=== PATIENT | male | born 1980 | race Caucasian/White ===

== ENCOUNTER 2019-12-26 12:56 | Emergency (ER) | payer SELFPAY ==
--- NOTE | ~2019-12-26 | XR_ITS ---
XR ankle LT min 3V DATE: 12/26/2019 14:22 INDICATION: Injury. Swelling. TECHNIQUE: 4 views COMPARISON: None FINDINGS: There is mild medial soft tissue swelling. No fracture or dislocation of the ankle or disru ption of the ankle mortise. No periosteal reaction or bone destruction. IMPRESSION: Mild medial soft tissue swelling Reviewed, dictated and finalized at location A.
[2019-12-26 13:33] VITALS: BP 154/98; PULSE 83; RESP 18; TEMP 36.8; O2SAT 100
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
--- NOTE | 2019-12-26 14:38 | PC.NURSE ---
Pt states he had TDAP 3 years ago/
[2019-12-26 14:47] LABS: Basophils Absolute Auto 0.1 K/mm3 (0.0-0.1); Basophils Percent Auto 1.5 % (0.2-1.2); Eosinophils Absolute Auto 0.2 K/mm3 (0-0.3); Eosinophils Percent Auto 1.8 % (0-4.4); Hematocrit 47.7 % (42.0-52.0); Hemoglobin 17.1 g/dL (14.0-18.0); Immature Granulocyte Absolute 0.07 K/mm3 (0.00-0.031); Immature Granulocyte Percent A 0.9 % (0-0.5); Lymphocytes Percent Auto 22.2 % (18.3-44.2); Mean Corpuscular HGB Conc 35.8 g/dl (32-36); Mean Corpuscular Hemoglobin 36.4 pg (26-34); Mean Corpuscular Volume 101.5 fl (80-100); Mean Platelet Volume 8.4 fl (7.4-10.4); Monocytes Absolute Auto 0.7 K/mm3 (0.1-0.6); Monocytes Percent Auto 8.4 % (2.6-8.5); Neutrophils Absolute Auto 5.3 K/mm3 (1.3-6.7); Neutrophils Percent Auto 65.2 % (45.5-73.1); Platelet Count Result 262 k/mm3 (150-375); Red Cell Distribution Width 12.5 % (11.5-14.5); White Blood Count 8.1 K/mm3 (4.5-10.0)
[2019-12-26 15:01] LABS: CRP 0.6 mg/dL (<1.0)
[2019-12-26 15:20] LABS: Erythrocyte Sedimentation Rate 6 mm/hr (0-20)
[2019-12-26 15:46] VITALS: BP 142/88; PULSE 78; RESP 15; O2SAT 100
== END 2019-12-26 16:37 | disposition home or self-care (01) ==
PROVIDERS: Emergency Provider Emergency Medicine
DX: S91.012A Laceration without foreign body, left ankle, initial encounter (principal); V86.56XA Driver of dirt bike or motor/cross bike injured in nontraffic accident, initial encounter
CPT/HCPCS: 36415; 73610; 85025; 85652; 86140; 99283